=== PATIENT | female | born 1975 | race Caucasian/White ===

== ENCOUNTER 2017-10-18 20:07 | Emergency (ER) | payer OTHER | END 2017-10-18 20:45 | disposition left against medical advice (07) | LOC: ED 20:30 | DX: Z53.21 Procedure and treatment not carried out due to patient leaving prior to being seen by health care provider (principal) ==

== ENCOUNTER 2017-11-25 11:31 | Emergency (ER) | payer SELFPAY ==
[~2017-11-25] VITALS: Ht 165.1 cm; Wt 84.5 kg
[2017-11-25 11:32] VITALS: BP 165/93
== END 2017-11-25 14:02 | disposition home or self-care (01) ==
LOC: ED 13:50
DX: S80.11XA Contusion of right lower leg, initial encounter (principal); S90.01XA Contusion of right ankle, initial encounter; Z88.0 Allergy status to penicillin; X58.XXXA Exposure to other specified factors, initial encounter; Y93.89 Activity, other specified; Y92.89 Other specified places as the place of occurrence of the external cause; Y99.8 Other external cause status
CPT/HCPCS: 99284

== ENCOUNTER 2017-12-04 10:01 | Emergency (ER) | payer SELFPAY ==
[~2017-12-04] VITALS: Ht 165.1 cm; Wt 82.3 kg
[2017-12-04] MEDS ORDERED: LORA-445 PO (10:28)
[2017-12-04 10:52] LABS: BASOPHILS # (AUTO) 0.04 x10^3/uL (0-0.1); BASOPHILS % (AUTO) 1 % (0-1); EOSINOPHILS % (AUTO) 0 % (1-7); LYMPHOCYTES # (AUTO) 1.83 x10^3/uL (1-3.4); LYMPHOCYTES % (AUTO) 24 % (22-44); MD NO; MEAN CORPUSCULAR HGB CONC 34.7 g/dL (32.4-35.8); MEAN CORPUSCULAR VOLUME 97.9 fL (80-100); MEAN PLATELET VOLUME 7.9 fL (7.4-10.4); MONOCYTES # (AUTO) 0.57 x10^3/uL (0.2-0.8); MONOCYTES % (AUTO) 7 % (2-9); NEUTROPHILS # (AUTO) 5.38 x10^3/uL (1.8-6.8); NEUTROPHILS % (AUTO) 69 % (42-75); PLATELET COUNT 269 x10^3/uL (130-400); RED CELL DISTRIBUTION WIDTH 12.9 % (9.6-15.2)
[2017-12-04 11:02] LABS: ALANINE AMINOTRANSFERASE 45 U/L (12-78); ALBUMIN 3.9 g/dL (3.4-5.0); ANION GAP 10 mmol/L (5-15); CALCIUM 8.6 mg/dL (8.5-10.1); CHLORIDE 108 mmol/L (98-107); CREATININE 0.92 mg/dL (0.55-1.02)
[2017-12-04 11:07] LABS: ALKALINE PHOSPHATASE 42 U/L (45-117); BILIRUBIN,TOTAL 0.6 mg/dL (0.2-1.0); TROPONIN I < 0.015 ng/mL (0.000-0.045)
[2017-12-04 12:09] VITALS: BP 161/106
== END 2017-12-04 12:10 | disposition home or self-care (01) ==
LOC: ED 11:57
DX: R55 Syncope and collapse (principal); R07.9 Chest pain, unspecified; I10 Essential (primary) hypertension
CPT/HCPCS: 36415; 71045; 80053; 83880; 84484; 84703; 85025; 93005; 99285

== ENCOUNTER 2018-10-08 07:51 | Emergency (ER) | payer OTHER ==
[~2018-10-08] VITALS: Ht 165.1 cm; Wt 82.0 kg
[~2018-10-08 07:51] MED LIST: LORA-445 PO
[2018-10-08 07:52] VITALS: BP 155/114
--- NOTE | 2018-10-08 08:21 | NUR ---
FIRST CONTACT WITH PT. PER PT, "SERIOUS ARM PAIN (RIGHT ARM) STARTING YESTERDAY AFTERNOON" PT DENIES TRAUMA. PT STATES, "IT'S A 10 AND IT RADIATES FROM THE TOP OF MY SHOULDER ALL THE WAY DOWN MY ARM"
[2018-10-08] MEDS ORDERED: METHOCARBAMOL 750 MG TABLET PO ONE (08:30)
[2018-10-08] MEDS ORDERED: HYDROcodone/APAP 5/325 TABLET PO ONE (08:30)
[2018-10-08] MEDS ORDERED: HYDROcodone/APAP 5/325 TABLET ONE (08:32)
[2018-10-08] MEDS ORDERED: KETOROLAC 30 MG/1 ML ONE ×3 (08:32→08:53)
[2018-10-08] MEDS ORDERED: METHOCARBAMOL 750 MG TABLET ONE (08:32)
[2018-10-08] MEDS: KETOROLAC 30 MG/1 ML IM ONE ×2 (08:35→08:57)
--- NOTE | 2018-10-08 09:11 | NUR ---
Patient given discharge instructions and they have confirmed that they understand the instructions. Patient ambulatory with steady gait. Pt left with all personal belongings, discharge paperwork, and prescription.
== END 2018-10-08 09:13 | disposition home or self-care (01) ==
LOC: ED 09:08
DX: S46.811A Strain of other muscles, fascia and tendons at shoulder and upper arm level, right arm, initial encounter (principal); I10 Essential (primary) hypertension; X58.XXXA Exposure to other specified factors, initial encounter; Y93.89 Activity, other specified; Y92.009 Unspecified place in unspecified non-institutional (private) residence as the place of occurrence of the external cause; Y99.8 Other external cause status
CPT/HCPCS: 96372; 99283; J1885

== ENCOUNTER 2019-04-09 16:53 | Emergency (ER) | payer OTHER ==
[~2019-04-09] VITALS: Ht 165.1 cm; Wt 82.8 kg
[2019-04-09 16:55] VITALS: BP 165/90
== END 2019-04-09 18:19 | disposition home or self-care (01) ==
LOC: ED 18:07
DX: N76.4 Abscess of vulva (principal); I10 Essential (primary) hypertension; Z98.51 Tubal ligation status; Z98.890 Other specified postprocedural states; Z88.0 Allergy status to penicillin
CPT/HCPCS: 56405; 99284

== ENCOUNTER 2019-04-11 07:26 | Emergency (ER) | payer OTHER ==
[~2019-04-11] VITALS: Ht 165.1 cm; Wt 82.8 kg
[2019-04-11 09:14] VITALS: BP 142/94
== END 2019-04-11 09:16 | disposition home or self-care (01) ==
LOC: ED 09:05
DX: N76.4 Abscess of vulva (principal); I10 Essential (primary) hypertension
CPT/HCPCS: 56405; 99284; J3490

== ENCOUNTER 2019-10-15 04:00 | Emergency (ER) | payer OTHER ==
[~2019-10-15] VITALS: Ht 165.1 cm; Wt 87.7 kg
[2019-10-15] MEDS ORDERED: LISI40TA PO (04:12)
[2019-10-15] MEDS ORDERED: HYDR12.517 PO (04:13)
[2019-10-15] MEDS ORDERED: SODIUM CHLORIDE FLUSH 10ML SYR IVF ONE (05:00)
--- NOTE | 2019-10-15 05:08 | NUR ---
pt resting on gurney, monitors in place, siderails up x2, iv site starteed, call light within reach. awaiting ct
[2019-10-15] MEDS ORDERED: HYDROcodone/APAP 5/325 TABLET PO ONE (05:30)
[2019-10-15] MEDS ORDERED: HYDROcodone/APAP 5/325 TABLET ONE (05:31)
--- NOTE | 2019-10-15 05:33 | NUR ---
pt medicated per mar
[2019-10-15 05:34] LABS: BASOPHILS # (AUTO) 0.02 x10^3/uL (0-0.1); BASOPHILS % (AUTO) 0 % (0-1); EOSINOPHILS # (AUTO) 0.19 x10^3/uL (0-0.4); EOSINOPHILS % (AUTO) 4 % (1-7); LYMPHOCYTES % (AUTO) 38 % (22-44); MD NO; MEAN CORPUSCULAR HEMOGLOBIN 33.5 pg (27.0-34.8); MEAN CORPUSCULAR HGB CONC 33.8 g/dL (32.4-35.8); MEAN CORPUSCULAR VOLUME 99.1 fL (80-100); MEAN PLATELET VOLUME 8.4 fL (7.4-10.4); MONOCYTES # (AUTO) 0.61 x10^3/uL (0.2-0.8); MONOCYTES % (AUTO) 12 % (2-9); NEUTROPHILS # (AUTO) 2.45 x10^3/uL (1.8-6.8); NEUTROPHILS % (AUTO) 47 % (42-75); PLATELET COUNT 218 x10^3/uL (130-400); RED BLOOD COUNT 3.85 x10^6/uL (3.82-5.3); RED CELL DISTRIBUTION WIDTH 12.4 % (9.6-15.2)
[2019-10-15 05:43] LABS: ALBUMIN 3.9 g/dL (3.4-5.0); ANION GAP 6 mmol/L (5-15); CALCIUM 9.2 mg/dL (8.5-10.1); CHLORIDE 104 mmol/L (98-107)
[2019-10-15] MEDS ORDERED: OMNIPAQUE 350 MG/ML, 75ML BOTTLE ONE (06:18)
--- NOTE | 2019-10-15 06:25 | NUR ---
[place], monitors in place ronel cole, call light within reach. awaitin gct result
--- NOTE | 2019-10-15 06:54 | NUR ---
report given to danis thomas
[2019-10-15 07:11] VITALS: BP 130/85
== END 2019-10-15 07:13 | disposition home or self-care (01) ==
LOC: ED 05:52
DX: K08.89 Other specified disorders of teeth and supporting structures (principal)
CPT/HCPCS: 36415; 70487; 80048; 82040; 85025; 99284; Q9967

== ENCOUNTER 2020-04-29 14:52 | Emergency (ER) | payer OTHER ==
[~2020-04-29] VITALS: Ht 167.6 cm; Wt 82.4 kg
[~2020-04-29 14:52] MED LIST changes: +HYDR12.517 PO; +LISI40TA PO
--- NOTE | 2020-04-29 15:35 | NUR ---
CP, SOB, MAJOR CRAMPING. CP LT LOWER RIB AREA STARTED THIS AM WHILE SITTING AT DESK AT WORK. "MAJOR CRAMPING EVERYWHERE RIGHT NOW". VOMITED EARLIER TODAY. NO MED TAKEN FOR PAIN. RESP CURRENTLY EVEN & UNLABORED, SPEECH CLEAR, SKIN WNL. 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 LMP: 1 WEEK AGO.
--- NOTE | 2020-04-29 15:45 | NUR ---
DR ACEVEDO BS FOR EXAM.
[2020-04-29] MEDS ORDERED: LORA-445 PO (15:49)
[2020-04-29] MEDS ORDERED: HYDR25TA6 PO (15:49)
--- NOTE | 2020-04-29 15:58 | NUR ---
PT NOTIFIED OF NEED FOR URINE SPECIMEN. DENIES URGE TO VOID CURRENTLY.
[2020-04-29] MEDS ORDERED: SODIUM CHLORIDE 0.9% 1,000ML IVBOLUS ONE ×2 (16:00→17:00)
[2020-04-29] MEDS ORDERED: FAMOTIDINE 20 MG/2 ML IV ONE (16:00)
[2020-04-29] MEDS ORDERED: ONDANSETRON 2MG/ML, 2ML IVPush ONE (16:00)
[2020-04-29] MEDS ORDERED: MORPHINE SULFATE 4 MG/ML, 1ML IVPush PRN (16:00)
[2020-04-29] MEDS ORDERED: LORazepam 2 MG/ML, 1ML IVPush ONE (16:00)
[2020-04-29] MEDS ORDERED: ONDANSETRON 2MG/ML, 2ML ONE (16:03)
[2020-04-29] MEDS ORDERED: MORPHINE SULFATE 4 MG/ML, 1ML ONE (16:03)
[2020-04-29] MEDS ORDERED: LORazepam 2 MG/ML, 1ML ONE (16:04)
[2020-04-29] MEDS ORDERED: FAMOTIDINE 20 MG/2 ML ONE (16:04)
[2020-04-29 16:14] LABS: BASOPHILS # (AUTO) 0.04 x10^3/uL (0-0.1); BASOPHILS % (AUTO) 0 % (0-1); EOSINOPHILS # (AUTO) 0.01 x10^3/uL (0-0.4); EOSINOPHILS % (AUTO) 0 % (1-7); LYMPHOCYTES # (AUTO) 1.99 x10^3/uL (1-3.4); LYMPHOCYTES % (AUTO) 19 % (22-44); MD NO; MEAN CORPUSCULAR HEMOGLOBIN 36.2 pg (27.0-34.8); MEAN CORPUSCULAR HGB CONC 34.3 g/dL (32.4-35.8); MEAN CORPUSCULAR VOLUME 105.6 fL (80-100); MEAN PLATELET VOLUME 8.4 fL (7.4-10.4); MONOCYTES # (AUTO) 0.86 x10^3/uL (0.2-0.8); MONOCYTES % (AUTO) 8 % (2-9); NEUTROPHILS # (AUTO) 7.66 x10^3/uL (1.8-6.8); NEUTROPHILS % (AUTO) 73 % (42-75); PLATELET COUNT 358 x10^3/uL (130-400); RED BLOOD COUNT 4.18 x10^6/uL (3.82-5.3); RED CELL DISTRIBUTION WIDTH 12.7 % (9.6-15.2)
--- NOTE | 2020-04-29 16:14 | NUR ---
ZOFRAN, PEPCID, ATIVAN, MORPHINE GIVEN PER EMAR. NS BOLUS INFUSING. SIDE RAIL UP X1, CALL LIGHT W/IN REACH, PT REMINDED OF NEED FOR URINE SPECIMEN, SPOUSE IN ROOM.
[2020-04-29 16:25] LABS: ANION GAP 13 mmol/L (5-15); CALCIUM 10.7 mg/dL (8.5-10.1); CHLORIDE 99 mmol/L (98-107)
[2020-04-29 16:31] LABS: ALANINE AMINOTRANSFERASE 190 U/L (12-78); ALKALINE PHOSPHATASE 49 U/L (45-117); BILIRUBIN,TOTAL 1.9 mg/dL (0.2-1.0); CREATININE 1.55 mg/dL (0.55-1.02); TOTAL PROTEIN 8.6 g/dL (6.4-8.2); TROPONIN I < 0.015 ng/mL (0.000-0.045)
[2020-04-29] MEDS ORDERED: MAGNESIUM SULFATE 3 GM, THIAMINE 100 MG, FOLIC ACID 1 MG, MVI ADULT 10 ML in SODIUM CHL... IV ONE (17:00)
--- NOTE | 2020-04-29 17:31 | NUR ---
CALLED PHARMACY RE: [facility]/THIAMINE [facility]NANA BAG. PER ELIO, RX WAS CANCELLED PER . WILL CONFIRM W/ ERP
--- NOTE | 2020-04-29 17:48 | NUR ---
PT REPORT TO KAY BRANHAM RN. PT CARE TRANSFERRED.
[2020-04-29 17:52] VITALS: BP_DIAS 105
--- NOTE | 2020-04-29 17:52 | NUR ---
BREAK RN: PT RESTING ON JOSE RAUL. GABRIELLA. VSS. IVF INITIATED. UA COLLECTED, LABELED, AND SENT TO LAB.
[2020-04-29 18:13] LABS: MICROSCOPIC AUTO
--- NOTE | 2020-04-29 18:21 | NUR ---
BREAK RN: PT CHART REVIEWED AND PLACED FOR RECHECK.
--- NOTE | 2020-04-29 18:31 | NUR ---
PT REPORT FROM ANDRÉS BRANHAM. PT TO BE DC'D
[2020-04-29 18:51] VITALS: BP_SYST 148
== END 2020-04-29 18:54 | disposition home or self-care (01) ==
LOC: ED 18:30
DX: K29.20 Alcoholic gastritis without bleeding (principal); F10.10 Alcohol abuse, uncomplicated; R19.7 Diarrhea, unspecified; R00.0 Tachycardia, unspecified; R94.31 Abnormal electrocardiogram [ECG] [EKG]; R07.89 Other chest pain; R11.2 Nausea with vomiting, unspecified; I10 Essential (primary) hypertension; Y90.9 Presence of alcohol in blood, level not specified
CPT/HCPCS: 36415; 71045; 80053; 81001; 83690; 83735; 84484; 84703; 85025; 85379; 87086; 93005; 96361; 96374; 96375; 99285; J2060; J2405; J3490; J7030; J2270